=== PATIENT | male | born 1960 | race Caucasian/White ===

== ENCOUNTER 2018-05-11 09:48 | Outpatient (REF) | payer BC, SELFPAY ==
--- NOTE | 2018-05-11 09:00 | SKI_PTH ---
PATIENT: Marty Bond III LOC: [facility] U#:[id number] AGE/SX: 57/M ROOM: RE05/11/[address]: Hiren Armenta : 1960 BED: DIS: 05/11/2018 SPEC #: [id number] RECD: 05/13/18 12:29 STATUS: SHAWN REKesha #: [id number] MARY: 05/11/18 09:[address]: Hiren Armenta DEPT: Surgical Specimen RECD BY: July Black Tissues: 1 - SKIN BIOPSY(SHAVE/PUNCH) Procedures: SKIN LEVEL 4 Comments: [id number]
== END 2018-05-11 10:08 ==
LOC: NCHCN 09:48
PROVIDERS: PCP Internal Medicine; Visit Provider Internal Medicine
DX: D23.62 Other benign neoplasm of skin of left upper limb, including shoulder (principal)
CPT/HCPCS: 88305

== ENCOUNTER 2019-04-19 21:54 | Outpatient (REF) | payer BC, SELFPAY ==
[2019-04-19 21:11] LABS: Anion Gap 10.3 mmol/L (3-11); BUN 18 mg/dL (7-18); CO2 28.7 mmol/L (21.0-32.0); CREATININE 0.95 mg/dL (0.70-1.30); Calcium 9.5 mg/dL (8.5-10.1); Calculated LDL 113 mg/dL; Chloride 101 mmol/L (98-107); Cholesterol 208 mg/dL (<200); Glucose 199 mg/dL (74-106); HDL Cholesterol 42 mg/dL (40-60); Potassium 3.8 mmol/L (3.5-5.1); Sodium 140 mmol/L (136-145); Triglyceride 268 mg/dL (<150)
== END 2019-04-19 22:14 ==
LOC: NCHCN 21:54
PROVIDERS: PCP Internal Medicine; Visit Provider Internal Medicine
DX: E11.9 Type 2 diabetes mellitus without complications (principal); I10 Essential (primary) hypertension; M54.5 Low back pain
CPT/HCPCS: 80048; 80061

== ENCOUNTER 2019-09-20 09:32 | Outpatient (CLI) | payer BC, SELFPAY ==
[2019-09-21 14:51] LABS: COVID-19 RT-PCR Result Not Detected ((See Note))
== END 2019-09-20 09:52 ==
PROVIDERS: PCP Internal Medicine; Visit Provider Internal Medicine
DX: Z11.59 Encounter for screening for other viral diseases (principal)
CPT/HCPCS: U0003

== ENCOUNTER 2020-04-12 00:12 | Outpatient (CLI) | payer BC, SELFPAY ==
--- NOTE | 2020-04-12 | DI.MRI_ITS ---
EXAM: MR BRAIN WO CLINICAL HISTORY: FRONTAL HEADACHE,R51. TECHNIQUE: Multiplanar multisequence MRI was performed. FINDINGS: MR examination of brain was performed according to the usual protocol. Examination is compared with prior study of April 2016 from [facility]. Note is again made right frontal encephalopathy status post reported tumor resection. Mildly abnorma l signal noted in this area FLAIR imaging and T2 weighted imaging, unchanged from prior study. No gr oss evidence of recurrent tumor at this time. There are tiny very peripheral areas cortical diffusion restriction which may correspond to small are as of decreased signal on ADC mapping in the right frontal region, these may represent tiny cortical infarcts. Otherwise diffusion-weighted imaging is within normal limits. No other significant signal abnormality identified in the brain. The orbital and temporal bone structures appear intact. There is normal flow void in the shzkia-po-Wgfuiq vasculature. IMPRESSION: Stable appearance of right frontal poor in cephaly status post tumor resection. Findings suggesting tiny cortical foci of focal infarction in the right frontal lobe adjacent to the prior resection. DATA REPOSITORY:
== END 2020-04-12 00:32 ==
PROVIDERS: PCP Internal Medicine; Visit Provider Internal Medicine
DX: R51.9 Headache, unspecified (principal); Z48.3 Aftercare following surgery for neoplasm
CPT/HCPCS: 70551

== ENCOUNTER 2020-10-27 12:07 | Outpatient (REF) | payer BC, SELFPAY ==
[2020-10-27 21:08] LABS: BUN 18 mg/dL (7-18); CREATININE 0.9 mg/dL (0.70-1.30); Calcium 8.8 mg/dL (8.5-10.1); Chloride 105 mmol/L (98-107); Glucose 194 mg/dL (74-106); Potassium 4.3 mmol/L (3.5-5.1); Sodium 140 mmol/L (136-145)
== END 2020-10-27 12:08 | disposition home or self-care (01) ==
LOC: NCHCN 12:07
PROVIDERS: PCP Internal Medicine; Visit Provider Internal Medicine
DX: I10 Essential (primary) hypertension (principal)
CPT/HCPCS: 80048

== ENCOUNTER 2021-02-16 01:38 | Outpatient (CLI) | payer BC, SELFPAY ==
[2021-02-16 13:05] LABS: Source Nasal/Nares
[2021-02-16 15:32] LABS: COVID-19 PCR Negative (Negative)
== END 2021-02-16 01:39 | disposition home or self-care (01) ==
LOC: LBO 01:38
PROVIDERS: PCP Internal Medicine; Visit Provider Surgery
DX: Z11.52 Encounter for screening for COVID-19 (principal); Z20.822 Contact with and (suspected) exposure to COVID-19; Z01.818 Encounter for other preprocedural examination
CPT/HCPCS: 87635

== ENCOUNTER 2021-10-29 11:15 | Outpatient (REF) | payer BC, SELFPAY ==
[2021-10-29 14:14] LABS: CREATININE 1.2 mg/dL (0.70-1.30)
== END 2021-10-29 11:16 | disposition home or self-care (01) ==
LOC: NCHCN 11:15
PROVIDERS: PCP Internal Medicine; Visit Provider Internal Medicine
DX: U07.1 COVID-19 (principal); Z01.812 Encounter for preprocedural laboratory examination
CPT/HCPCS: 82565

== ENCOUNTER 2021-11-16 03:18 | Outpatient (CLI) | payer BC, SELFPAY ==
[2021-11-16 09:24] LABS: Abs Immature Grans 0.01 10^3/uL (0.0-0.06); Absolute Basophil Count 0.03 10^3/uL (0.0-0.2); Absolute Eosinophil Count 0.31 10^3/uL (0.0-0.7); Absolute Lymphocyte Count 1.59 10^3/uL (1.2-3.4); Absolute Monocyte Count 0.48 10^3/uL (0.1-0.8); Absolute Neutrophil Count 3.13 10^3/uL (1.2-6.7); Basophils % 0.5; Eosinophils % 5.6; HCT 43.7 % (40.0-50.0); HGB 14.6 g/dL (13.5-17.5); Immature Grans % 0.2; Lymphocytes % 28.6; MCH 28.1 pg (27.0-33.0); MCHC 33.4 % (32.0-36.0); MCV 84 fL (80-95); MPV 9.9 fL (8.0-11.0); Monocytes % 8.6; Neutrophils % 56.5; Platelet Count 239 10^3/uL (130-400); RBC 5.19 10^6/uL (4.36-5.78); RDW 13.2 % (11.8-14.1); RDW-SD 40.8 fL; WBC 5.55 10^3/uL (4.4-10.8)
[2021-11-16 09:27] LABS: ESR 5 mm/hr (0-20)
[2021-11-16 10:25] LABS: FREE T4 0.98 ng/dL (0.76-1.46); TSH 2.14 uIU/mL (0.36-3.74)
[2021-11-20 13:21] LABS: CREATININE 0.9 mg/dL (0.70-1.30)
== END 2021-11-16 03:19 | disposition home or self-care (01) ==
LOC: LBO 03:19
PROVIDERS: PCP Internal Medicine; Visit Provider Internal Medicine
DX: E23.6 Other disorders of pituitary gland (principal); E11.9 Type 2 diabetes mellitus without complications
CPT/HCPCS: 36415; 82533; 85652; 82565; 83036; 84439; 84443; 85025

== ENCOUNTER 2022-02-18 11:47 | Outpatient (REF) | payer BC, SELFPAY ==
[2022-02-19 09:20] LABS: PSA, Screening 2.2 ng/mL (<=4.5)
== END 2022-02-18 11:48 | disposition home or self-care (01) ==
LOC: NCHCN 11:47
PROVIDERS: PCP Internal Medicine; Visit Provider Internal Medicine
DX: R39.89 Other symptoms and signs involving the genitourinary system (principal); Z12.5 Encounter for screening for malignant neoplasm of prostate
CPT/HCPCS: 84153

== ENCOUNTER 2022-08-29 15:24 | Outpatient (REF) | payer BC, SELFPAY ==
[2022-08-29 14:39] LABS: Anion Gap 8.2 mmol/L (3-11); BUN 18 mg/dL (7-18); CO2 27.8 mmol/L (21.0-32.0); Calcium 8.9 mg/dL (8.5-10.1); Chloride 103 mmol/L (98-107); Estimated GFR 84.57 (mL/min/1.73m2); Glucose 279 mg/dL (74-106); Potassium 4.2 mmol/L (3.5-5.1); Sodium 139 mmol/L (136-145)
[2022-08-29 14:41] LABS: HCT 40.4 % (40.0-50.0); HGB 13.3 g/dL (13.5-17.5); MCHC 32.9 % (32.0-36.0); MCV 85 fL (80-95); MPV 10.5 fL (8.0-11.0); Platelet Count 237 10^3/uL (130-400); RBC 4.75 10^6/uL (4.36-5.78); RDW-SD 39.9 fL; WBC 6.94 10^3/uL (4.4-10.8)
== END 2022-08-29 15:25 | disposition home or self-care (01) ==
LOC: NCHCN 15:24
PROVIDERS: PCP Internal Medicine; Visit Provider Internal Medicine
DX: E11.9 Type 2 diabetes mellitus without complications (principal); I10 Essential (primary) hypertension; F43.25 Adjustment disorder with mixed disturbance of emotions and conduct
CPT/HCPCS: 80048; 85027

== ENCOUNTER → 2023-01-11 10:03 | Outpatient (CLI) | payer BC, SELFPAY ==
--- NOTE | 2023-01-11 | DI.RAD_ITS ---
Exam(s) XR CHEST 2V PA LATERAL EXAM: XR CHEST 2V PA LATERAL CLINICAL HISTORY: SHORTNESS OF BREATH ICD-R06.02 TECHNIQUE: 2D digital imaging was performed of the chest. Two images were obtained. PA and lateral views were obtained. COMPARISON: No exams were available for comparison FINDINGS: MEDIASTINUM: Normal. HEART: Normal. PULMONARY VASCULATURE: The jewels are prominent bilaterally, right greater than left. LUNGS: There is bilateral basilar atelectasis. No focal consolidating infiltrates. PLEURAL SPACE: No pleural effusion or pneumothorax. BONE:Within normal limits for the patient's age. OTHER FINDINGS:Normal. IMPRESSION: Prominence of the pulmonary jewels, right greater than left. Adenopathy or mass. Pulmonary artery hyp ertension should also be considered. CT scan of the chest with contrast is recommended for further e valuation. DATA REPOSITORY: RADIATION DOSE DELIVERED:
--- NOTE | 2023-01-11 11:26 | DI.VRAD_ITS ---
PROCEDURE INFORMATION: Exam: XR Chest Exam date and time: 01/11/2023 11:11 AM Age: 62 years old Clinical indication: Shortness of breath TECHNIQUE: Imaging protocol: Radiologic exam of the chest. Views: 2 views. COMPARISON: No relevant prior studies available. FINDINGS: Lungs: The right hilum is more prominent than expected. Recommend CT if right hilar mass is suspected clinically. Pleural spaces: Unremarkable. No pleural effusion. No pneumothorax. Heart/Mediastinum: Unremarkable. No cardiomegaly. Bones/joints: Unremarkable. IMPRESSION: The right hilum is more prominent than expected. Recommend CT if right hilar mass is suspected clinically. Dictated and Authenticated by: Delisa Boykin MD. Ordering:STEPHENIE SUNSHINE MD
== END ==
PROVIDERS: PCP Internal Medicine; Visit Provider Nurse Practitioner Family
DX: R06.02 Shortness of breath (principal); R91.8 Other nonspecific abnormal finding of lung field
CPT/HCPCS: 71046

== ENCOUNTER 2023-01-11 10:18 | Outpatient (REF) | payer BC, SELFPAY ==
[2023-01-11 17:25] LABS: Abs Immature Grans 0.02 10^3/uL (0.0-0.06); Absolute Basophil Count 0.03 10^3/uL (0.0-0.2); Absolute Eosinophil Count 0.13 10^3/uL (0.0-0.7); Absolute Lymphocyte Count 1.36 10^3/uL (1.2-3.4); Absolute Monocyte Count 0.43 10^3/uL (0.1-0.8); Absolute Neutrophil Count 5.12 10^3/uL (1.2-6.7); Basophils % 0.4; Eosinophils % 1.8; HCT 38.9 % (40.0-50.0); HGB 13.1 g/dL (13.5-17.5); Immature Grans % 0.3; Lymphocytes % 19.2; MCH 28.7 pg (27.0-33.0); MCHC 33.7 % (32.0-36.0); MCV 85 fL (80-95); MPV 11.6 fL (8.0-11.0); Monocytes % 6.1; Neutrophils % 72.2; Platelet Count 243 10^3/uL (130-400); RBC 4.57 10^6/uL (4.36-5.78); RDW 13.4 % (11.8-14.1); WBC 7.09 10^3/uL (4.4-10.8)
[2023-01-11 17:53] LABS: ALT 58 U/L (16-63); AST 16 U/L (15-37); Albumin 3.7 g/dL (3.4-5.0); Alkaline Phosphatase 82 U/L (46-116); Anion Gap 11.7 mmol/L (3-11); BUN 14 mg/dL (7-18); Bilirubin, Total 1.5 mg/dL (0.2-1.0); CO2 25.3 mmol/L (21.0-32.0); Calcium 8.8 mg/dL (8.5-10.1); Chloride 103 mmol/L (98-107); Estimated GFR 84.57 (mL/min/1.73m2); Glucose 240 mg/dL (74-106); NT-proBNP 1066 pg/mL (<300); Sodium 140 mmol/L (136-145); TSH (W/Ref FT4) 1.75 uIU/mL (0.36-3.74)
[2023-01-13 18:08] LABS: Creatine Kinase 69 U/L (39-308)
== END 2023-01-11 10:19 | disposition home or self-care (01) ==
LOC: LBN 10:18
PROVIDERS: PCP Internal Medicine; Visit Provider Nurse Practitioner Family
DX: R53.83 Other fatigue (principal); R06.09 Other forms of dyspnea; R06.02 Shortness of breath
CPT/HCPCS: 80053; 82550; 83880; 84443; 85025

== ENCOUNTER → 2023-01-21 01:13 | Outpatient (CLI) | payer BC, SELFPAY ==
--- NOTE | 2023-01-21 | DI.CT_ITS ---
Exam(s) CT CHEST PE CTA EXAM: CT CHEST PE CTA CLINICAL HISTORY: SOB, R06.02, ABNL EKG, R94.31,HILAR ADENOPATHY,R59.0,?PE. TECHNIQUE: Imaging Protocol: CT angiography of the chest was performed using pulmonary embolus sherly col. Multi planar reconstructions were performed. CONTRAST MATERIAL: Intravenous: Omnipaque 350 Contrast volume: 100 cc COMPARISON: No exams were available for comparison FINDINGS: CHEST: PULMONARY ARTERIES: There are no intraluminal filling defects to suggest acute pulmonary emboli. LUNGS: There is mild subpleural infiltrate over the superior segments of both lower lobes and extendi ng into the posterior basal segments bilaterally, not associated with pleural effusions. There is sp aring of the upper lobes. There is a benign-appearing 2 millimeters subpleural nodule in the lateral aspect of the right middle lobe. Lingular segment of the left lung appears unremarkable. No focal findings in trachea and mainstem bronchi.. There are no pleural effusions. MEDIASTINUM: There is no hilar nor mediastinal adenopathy. Visualized thyroid unremarkable. CARDIAC: Heart size upper normal. There is a thin pericardial effusion noted anteriorly with maximum thickness 0.5 cm.Caliber of the thoracic aorta is within normal limits. Cannot assess for aortic dis section as all the contrast is in the pulmonary arterial tree. There is no significant shift of the interventricular septum. PARTIALLY VISUALIZED UPPERMOST ABDOMEN: No obvious findings OSSEOUS: No significant osseous lesions.. IMPRESSION: 1. No evidence of acute pulmonary emboli nor pulmonary infarction 2. However, there is mild infiltrate noted posteriorly in the superior segments of both lower lobes a s well as in the posterior basal segments of both lower lobes. No associated pleural effusions. No hilar nor mediastinal adenopathy. 3. Small pericardial effusion noted. RADIATION DOSE DELIVERED: 590.99mGy.cm Total DLP DATA REPOSITORY: All CT scans at this facility are submitted to the National Radiology Data Registry (NRDR) Dose Index Registry (DIR) with the [employer] (ACR). RADIATION OPTIMIZATION: All CT scans at this facility use at least one of these dose optimization te chniques: automated exposure control; mA and/or kV adjustment per patient size (includes targeted exa ms where dose is matched to clinical indication); or iterative reconstruction.
[2023-01-21] MEDS: Normal Saline - Diluent 50 ML VIAL IJ (11:04)
[2023-01-21] MEDS: Normal Saline Flush 10 ML SYR IVP (11:05)
[2023-01-21] MEDS: Omnipaque 350 MG/ML 500 ML BTL-Imaging package 100 ML IJ (11:06)
== END ==
PROVIDERS: PCP Internal Medicine; Visit Provider Internal Medicine
DX: R91.8 Other nonspecific abnormal finding of lung field (principal)
CPT/HCPCS: 71275

== ENCOUNTER 2023-03-10 18:35 | Outpatient (REF) | payer BC, SELFPAY ==
[2023-03-10 21:23] LABS: Abs Immature Grans 0.02 10^3/uL (0.0-0.06); Absolute Basophil Count 0.03 10^3/uL (0.0-0.2); Absolute Eosinophil Count 0.14 10^3/uL (0.0-0.7); Absolute Lymphocyte Count 1.19 10^3/uL (1.2-3.4); Absolute Monocyte Count 0.47 10^3/uL (0.1-0.8); Absolute Neutrophil Count 5.71 10^3/uL (1.2-6.7); Basophils % 0.4; Eosinophils % 1.9; HCT 42.2 % (40.0-50.0); HGB 13.6 g/dL (13.5-17.5); Immature Grans % 0.3; Lymphocytes % 15.7; MCH 27.4 pg (27.0-33.0); MCHC 32.2 % (32.0-36.0); MCV 85 fL (80-95); MPV 11.2 fL (8.0-11.0); Monocytes % 6.2; Neutrophils % 75.5; Platelet Count 269 10^3/uL (130-400); RBC 4.97 10^6/uL (4.36-5.78); RDW 13.8 % (11.8-14.1); RDW-SD 42.9 fL; WBC 7.56 10^3/uL (4.4-10.8)
[2023-03-10 21:42] LABS: ALT 58 U/L (16-63); AST 14 U/L (15-37); Albumin 3.7 g/dL (3.4-5.0); Alkaline Phosphatase 84 U/L (46-116); Anion Gap 11.2 mmol/L (3-11); BUN 17 mg/dL (7-18); Bilirubin, Total 1.4 mg/dL (0.2-1.0); CO2 23.8 mmol/L (21.0-32.0); CREATININE 0.8 mg/dL (0.70-1.30); Calcium 9.2 mg/dL (8.5-10.1); Chloride 104 mmol/L (98-107); Creatine Kinase 46 U/L (39-308); Estimated GFR 99.44 (mL/min/1.73m2); Glucose 172 mg/dL (74-106); NT-proBNP 1917 pg/mL (<300); Potassium 4.4 mmol/L (3.5-5.1); Sodium 139 mmol/L (136-145); Total Protein 6.2 g/dL (6.4-8.2)
[2023-03-10 22:08] LABS: D-Dimer 1088 ng/mlFEU (<500)
== END 2023-03-10 18:36 | disposition home or self-care (01) ==
LOC: NCHCN 18:35
PROVIDERS: PCP Internal Medicine; Visit Provider Internal Medicine
DX: R06.01 Orthopnea (principal); E11.9 Type 2 diabetes mellitus without complications; R06.00 Dyspnea, unspecified; I51.7 Cardiomegaly; I10 Essential (primary) hypertension
CPT/HCPCS: 80053; 82550; 83880; 85025; 85379

== ENCOUNTER → 2023-03-11 22:05 | Outpatient (CLI) | payer BC, SELFPAY ==
--- NOTE | 2023-03-11 | DI.CT_ITS ---
Exam(s) CT CHEST PE CTA EXAM: CT CHEST PE CTA CLINICAL HISTORY: DYSPNEA, R06.00, ELEVATED D DIMER. TECHNIQUE: Imaging Protocol: Axial CT angiography was performed with multi-slice acquisition and mu lti-planar reconstructions as well as axial, coronal and sagittal MIP reconstructions. CONTRAST MATERIAL: Intravenous: Omnipaque 350 Contrast volume:100 ml COMPARISON: CT CT CHEST PE CTA from 01/21/2023 FINDINGS: Pulmonary Arteries: Small emboli seen in right lateral basilar pulmonary artery branches. No additio nal emboli. Tracheobronchial tree: Patent where visualized. Mediastinum and Laura: No dominant adenopathy or fluid collection. Pulmonary parenchyma: On atelectasis versus infiltrate medial right lower lobe. Pleura: Small to moderate-sized bilateral pleural effusions, right greater than left. Small pericard ial effusion, similar to prior. No pneumothorax. Heart: The heart is dilated, particularly left ventricle and left atrium.. No coronary artery calci fications are seen. Aorta: Thoracic aorta non-dilated. No aneurysm. No dissection. Upper abdomen: Unremarkable. Bones: Unremarkable for age. Tubes, Catheters, and Lines: None IMPRESSION: Small pulmonary emboli in right lateral basilar branch vessels. Right lower lobe infiltrate versus atelectasis. Cardiomegaly. Small pericardial effusion. RADIATION DOSE DELIVERED: Total DLP DATA REPOSITORY: All CT scans at this facility are submitted to the National Radiology Data Registry (NRDR) Dose Index Registry (DIR) with the [employer] (ACR). RADIATION OPTIMIZATION: All CT scans at this facility use at least one of these dose optimization te chniques: automated exposure control; mA and/or kV adjustment per patient size (includes targeted exa ms where dose is matched to clinical indication); or iterative reconstruction.
[2023-03-11] MEDS: Normal Saline - Diluent 50 ML VIAL IJ (13:05)
[2023-03-11] MEDS: Omnipaque 350 MG/ML 100 ML BTL IJ (13:06)
[2023-03-11] MEDS: Normal Saline Flush 10 ML SYR IVP (13:08)
== END ==
PROVIDERS: PCP Internal Medicine; Visit Provider Internal Medicine
DX: R06.00 Dyspnea, unspecified (principal)
CPT/HCPCS: 71275; J3490

== ENCOUNTER 2023-04-17 14:53 | Outpatient (RCR) | payer BC, SELFPAY | END 2023-04-17 23:59 | disposition home or self-care (01) | LOC: CR 14:53 | PROVIDERS: PCP Internal Medicine; Visit Provider Internal Medicine Cardiovascular Disease | DX: I50.23 Acute on chronic systolic (congestive) heart failure (principal) ==

== ENCOUNTER 2023-05-16 08:11 | Outpatient (RCR) | payer BC, SELFPAY ==
--- OUTSIDE RECORDS SUMMARY | 2023-04-21 10:32 | XMS_ITS | Continuity of Care Document ---
Author Name Unknown Organization [facility] Address [address] [place] [address] Care Team Providers Care Line Service Technician Name Role Phone Hiren Armenta Primary Care Physician Encounter [facility] [id number] Date(s): 05/16/22 - 05/16/[address] [address]- [place] Discharge Disposition: Home or Self Care Attending Physician: Hiren Armenta Admitting Physician: Hiren Armenta Referring Physician: Hiren Armenta Results Radiology Reports * Exam Date Time Procedure Performing Provider Status 05/16/22 2:16 PM [facility] Xenia Whiteside ( Verified) Notes: ([facility]) Reason For Exam: lt scrotal mass [facility] EXAM DESCRIPTION: [facility] 05/16/2022 INDICATION: LT SCROTAL MASS TECHNIQUE: Limited grayscale ultrasound examination of the left inguinal region was performed in the vicinity of clinical concern. Static and cine clip images were obtained. COMPARISON: None FINDINGS: Ovoid area of intermediate echogenicity edematous appearing tissue in the left inguinal region suggesting inflammation with ill-defined hypoechoic collection in the superficial soft tissues in this region measuring approximately 10 x 3 mm. The patient relates a history of recent expression of fluid from this region, and this likely reflects small residual collection such as abscess or hematoma given this clinical history. Otherwise no mass or abnormal fluid collection identified in this region. IMPRESSION: Small hypoechoic fluid collection in the superficial soft tissues of the left inguinal region in the vicinity of clinical concern measuring approximately 10 x 3 mm likely reflecting small abscess or hematoma with surrounding subcutaneous soft tissue edema. JOB #: [id number] Final Signed by: Jairo Toledo MD Signed (Electronic Signature): 05/16/2022 2:39 pm US Pelvis [facility] * Jairo Toledo MD: VERIFY, VERIFY Event Display: Report EXAM DESCRIPTION: [facility] 05/16/2022 INDICATION: LT SCROTAL MASS TECHNIQUE: Limited grayscale ultrasound examination of the left inguinal region was performed in the vicinity of clinical concern. Static and cine clip images were obtained. COMPARISON: None FINDINGS: Ovoid area of intermediate echogenicity edematous appearing tissue in the left inguinal region suggesting inflammation with ill-defined hypoechoic collection in the superficial soft tissues in this region measuring approximately 10 x 3 mm. The patient relates a history of recent expression of fluid from this region, and this likely reflects small residual collection such as abscess or hematoma given this clinical history. Otherwise no mass or abnormal fluid collection identified in this region. IMPRESSION: Small hypoechoic fluid collection in the superficial soft tissues of the left inguinal region in the vicinity of clinical concern measuring approximately 10 x 3 mm likely reflecting small abscess or hematoma with surrounding subcutaneous soft tissue edema. JOB #: [id number] Final Signed by: Jairo Toledo MD Signed (Electronic Signature): 05/16/2022 2:39 pm Patient Care team information Personnel Name: Hiren Armenta Address: Address: [address] [place] [id number]
--- NOTE | 2023-04-21 11:30 | RT.EKG_ITS ---
APPROVED REPORT Exam: Resting ECG Reason for Exam: ? rhythm change Patient Location: O HR:105 bpm ECG Measurements Heart Rate 105 AXIS PA [id number] P [id number] QRSd 128 QRS 10 QT 397 T 117 QTc 525 Conclusion Atrial flutter...A-rate 258 LVH with secondary repolarization abnormality...multi-LVH criteria, abnrm ST-T Borderline ST elevation, inferior leads...ST >0.06mV, II III aVF
--- OUTSIDE RECORDS SUMMARY | 2023-05-16 08:14 | XMS_ITS | Continuity of Care Document ---
Author Name Unknown Organization [facility] Address [address] [place] [address] Care Team Providers Care Summer Clerk Name Role Phone Suzanne Aquino Primary Care Physician Encounter [facility] Date(s): 05/07/23 - 05/07/23 [facility] [address] [place] [address] Discharge Disposition: Home Allergies, Adverse Reactions, Alerts Substance Reaction Severity Status Atorvastatin Calcium Moderate Active Jardiance Unknown Active Rosuvastatin Calcium Moderate Active Ozempic Unknown Active Assessment and Plan Future Appointments Medications Albuterol (Eqv-ProAir HFA) 90 mcg/inh inhalation aerosol 0 Refill(s) Start Date: 05/05/23 Status: Ordered amLODIPine 5 mg oral tablet 5 mg = 1 tab, Oral, Daily, # 30 tab, 0 Refill(s) Start Date: 05/05/23 Status: Ordered bisoprolol-hydrochlorothiazide 2.5 mg-6.25 mg oral tablet 0 Refill(s) Start Date: 05/05/23 Status: Ordered Eliquis 5 mg oral tablet 5 mg = 1 tab, Oral, BID, take 2 tablets by mouth twice a day, # 60 tab, 0 Refill(s) Start Date: 05/05/23 Status: Ordered metFORMIN 500 mg oral tablet take three tablets daily, 0 Refill(s) Start Date: 05/05/23 Status: Ordered torsemide 20 mg oral tablet 20 mg = 1 tab, Oral, Daily, # 30 tab, 0 Refill(s) Start Date: 05/05/23 Status: Ordered zolpidem 5 mg oral tablet See Instructions, take 1-2 PO night of sleep study if needed, # 2 tab, 0 Refill(s), Pharmacy: [facility]/pharmacy #[id number], 193.04, cm, 05/07/23 9:58:00 EST, Height, 106.59, kg, 05/07/23 10:07:00 EST, Weight Dosing Start Date: 05/07/23 Status: Ordered Problem List Condition Confirmation Course Effective Dates Status H ealth Status Informant Acute systolic congestive heart failure Confirmed Active Adjustment disorder with mixed emotional features Confirmed Active Allergic rhinitis Confirmed Active Anxiety Confirmed Active Bereavement Confirmed Active Bilateral tinnitus Confirmed Active Cardiomegaly Confirmed Active Depression Confirmed Active Dyspnea Confirmed Active Shortness of breath Confirmed Active Abnormal EKG Confirmed Active Empty sella Confirmed Active Environmental allergies Confirmed Active Fatigue Confirmed Active History of tobacco use Confirmed Active History of brain tumor Confirmed Active Hilar adenopathy Confirmed Active High cholesterol Confirmed Active Hypertension Confirmed Active Groin pain Confirmed Active Lipoma of back Confirmed Active Lumbar back pain Confirmed Active Nocturia Confirmed Active Orthopnea Confirmed Active Pulmonary embolism Confirmed Active Seizure disorder Confirmed Active Abnormal chest x-ray with multiple nodules Confirmed Active Tendinitis of left wrist Confirmed Active Type II diabetes mellitus Confirmed Active Social History Social History Type Response Tobacco Former tobacco user Tobacco Use:. 1 Sex 1quit in 2006 Patient Care team information Care Team Personnel Name: Suzanne Aquino MD Position: No Access Member Role: Primary Care Physician Address: Address: [address] [place] [address] Care Team Related Persons Name: KURT MILLS
== END 2023-05-18 23:59 | disposition home or self-care (01) ==
LOC: CR 08:11
PROVIDERS: PCP Internal Medicine; Visit Provider Internal Medicine Cardiovascular Disease
DX: I50.23 Acute on chronic systolic (congestive) heart failure (principal); Z51.89 Encounter for other specified aftercare
CPT/HCPCS: S9472

== ENCOUNTER 2023-06-16 08:10 | Outpatient (RCR) | payer BC, SELFPAY | END 2023-06-18 23:59 | disposition home or self-care (01) | LOC: CR 08:10 | PROVIDERS: PCP Internal Medicine; Visit Provider Internal Medicine Interventional Cardiology | DX: I50.23 Acute on chronic systolic (congestive) heart failure (principal); Z51.89 Encounter for other specified aftercare | CPT/HCPCS: S9472 ==

== ENCOUNTER 2023-06-27 14:25 | Outpatient (RCR) | payer BC, SELFPAY | END 2023-07-17 23:59 | disposition home or self-care (01) | LOC: CR 14:25 | PROVIDERS: PCP Internal Medicine; Visit Provider Internal Medicine Interventional Cardiology | DX: I50.22 Chronic systolic (congestive) heart failure (principal); Z51.89 Encounter for other specified aftercare | CPT/HCPCS: S9472 ==

== ENCOUNTER 2023-08-15 08:00 | Outpatient (RCR) | payer BC, SELFPAY | END 2023-08-17 23:59 | disposition home or self-care (01) | LOC: CR 08:00 | PROVIDERS: PCP Family Medicine; Visit Provider Internal Medicine Cardiovascular Disease | DX: I50.23 Acute on chronic systolic (congestive) heart failure (principal); Z51.89 Encounter for other specified aftercare | CPT/HCPCS: S9472 ==

== ENCOUNTER 2023-08-18 08:00 | Outpatient (RCR) | payer BC, SELFPAY | END 2023-09-16 23:59 | disposition home or self-care (01) | LOC: CR 08:00 | PROVIDERS: PCP Family Medicine; Visit Provider Internal Medicine Cardiovascular Disease | DX: I50.23 Acute on chronic systolic (congestive) heart failure (principal); Z51.89 Encounter for other specified aftercare | CPT/HCPCS: S9472 ==

== ENCOUNTER 2023-12-19 11:59 | Day surgery (SDC) | payer BC, SELFPAY ==
--- NOTE | 2023-12-18 16:42 | W.PM.DSUDISC ---
Date of service: 12/19/23 Time of Service: 13:51 Discharge Plan Disposition Patient Disposition: Home Condition: Good Discharge Details Reason For Visit: cyst removal Attending Provider: Crystal Chadwick Primary Care Provider: Suzanne Aquino Home Meds and New Rx's Prescriptions: No Action multivitamin [Multiple Vitamins] Tablet 1 tab PO DAILY Patient Comments: 1000 mg last katty rosuvastatin 5 mg tablet 5 mg PO .weekly bisoprolol fumarate 5 mg tablet 5 mg PO DAILY Eliquis 5 mg tablet 5 mg PO BID Entresto 49-51 mg tablet 1 tab PO BID Jardiance 25 mg tablet 25 mg PO DAILY metformin 500 mg tablet 500 mg PO TID torsemide 20 mg tablet 10 mg PO DAILY Discharge Instructions Additional Instructions: Wound Care Instruction Pain Control Use ice!? Ice keeps the swelling down and swelling is what causes pain.? Never apply ice directly to the skin.? Wrap it in a towel or cloth.? Apply ice 20 minutes on and 20 minutes off for pain control.? Use as needed. Take Tylenol 500 mg by mouth with food every 4 hours as needed for pain. Do not take Tylenol if you have a history of heavy drinking, hepatitis C or liver problems.? Always wash your hands before touching your incision. ? Keep the incision clean and dry. ? Do not to pick at the scabs. Scabs help protect the wound. -Stitches will need to come out in 10 days time. You can remove these herself or follow-up with us at the clinic. -I recommend wearing a menstrual pad for a few days. And for comfort. There may be some pinkish drainage for 2 to 3 days. -Resume Eliquis on Friday -You will be black and blue. If you notice heavy bleeding or swelling that seems to be increasing, please call our clinic or go to the ER. -No lifting over 5 pounds for 72 hours. ? You can take a shower in 24 hours and wash the incision with soap and water. Pat dry/don?t scrub. It?s OK to wash around the incision. But don?t spray water directly on it. Wash incision with soap and water 2-3 times a day. ? Pat stitches dry if they get wet. Don't rub. ? Check the incision site daily for pain, redness, drainage, swelling, or separation of the incision edges. ? Make sure any clothing that touches the incision is loose-fitting. As your incision heals, the skin may appear pink or red. It may also feel slightly bumpy or raised. This is called a healing ridge. Over time, the color should fade and the raised skin will become less noticeable. When to seek medical care Call your healthcare provider right away if you have any of these: ? More pain, redness, swelling, bleeding, or foul-smelling discharge around the incision area ? Fever of 101?F (38.3?C) or higher, or as directed by your child's healthcare provider ? Shaking chills ? Vomiting or nausea that doesn?t go away ? Numbness, coldness, or tingling around the incision area, or changes in skin color ? Opening of the sutures or wound -Stitches or ezequiel that come apart or fall out or surgical tape falls off before 7 days, or as directed by your healthcare provider ?[facility]: [phone] Activity:: The above Remove Dressings/Wound Care:: 24 hours Shower/Bathe:: 24 hours Diet:: As Tolerated Discharge Orders Discharge Orders: Discharge Order (Routine); Ordered 12/19/23 Ordered By: Crystal Chadwick DS: Diagnosis Discharge Diagnosis (1) Hypertensive disorder: Status: Chronic (2) Cardiomegaly: Status: Acute (3) High cholesterol: Status: Chronic (4) Diabetes: Status: Chronic (5) Empty sella: Status: Acute (6) Groin abscess: Status: Acute (7) Infected sebaceous cyst of skin: Status: Acute Asessment and Plan: The patient is doing well post-op from their excision of sebaceous cyst surgery.? They are having no nausea or vomiting. They are tolerating liquids and a snack. The pt is not having any chest pain or SOB.? Their pain is adequately controlled. They have been able to urinate.? ?HEENT:? no eye pain/drainage/redness/swelling. Mild sore throat ?Cardio- NSR, no chest pain, BP stable- see VS record ?Pulm: no sob or productive cough. No hemoptysis ?Incision- dressing is c/d/i w/ no excessive bleeding or drainage ?I discussed with the patient the findings at the time of surgery and the patient?s progress. ?We reviewed expectations at home; what the patient could expect for recovery time, and in the post-operative period.? We discussed the importance of walking to avoid blood clots and pneumonia.? We discussed and reviewed the patient's post-operative wound care and dressing needs.?? We reviewed their step-meza pain management plan, Rx called to the pharmacy of their choice.? We reviewed activity and limitations-see discharge instructions. We reviewed warning signs, and when to seek medical attention- see d/c instructions.?? Patient was given a postoperative follow-up appointment. Patient verbalized understanding of their postoperative instructions, how do to take care of themselves and their incision, and the pain management plan. Please see discharge instructions.? (8) CHF (congestive heart failure): (9) Chronic systolic heart failure: (10) Atrial flutter: (11) History of tobacco use:
[2023-12-19 12:34] VITALS: BP 135/74; PULSE 63; RESP 16; TEMP 36.3; O2SAT 95
[2023-12-19] MEDS: Acetaminophen 500 MG TAB 1000 MG PO (12:41)
[2023-12-19] MEDS: Cephalexin 500 MG CAP 1000 MG PO (12:42)
[2023-12-19] MEDS: Lidocaine/Prilocaine Cream 5 GM TUBE TP (12:43)
--- NOTE | 2023-12-19 12:52 | NUR.NOTE ---
Nursing Note: Pt refused PO gabapentin preop.
--- NOTE | 2023-12-19 13:30 | SKI_PTH ---
PATIENT: Marty Bond III LOC: [facility] U#:[id number] AGE/SX: 63/M ROOM: RE12/19/[address]: Crystal Chadwick : 1960 BED: DIS: 12/19/2023 SPEC #: [id number] RECD: 12/19/23 15:16 STATUS: SHAWN REKesha #: [id number] MARY: 12/19/23 13:[address]: Crystal Chadwick DEPT: Surgical Specimen RECD BY: Rani Dominique ENTERED: 12/19/23 15:17 SP TYPE: MAVIS [place] DR: Suzanne Aquino Tissues: 1 - SKIN CYST/TAG/DEBRIDEMENT Procedures: GROSS AND MICRO LEVEL 3 Comments: [id number]
[2023-12-19] MEDS: Lidocaine 1% Multi-Dose W/EPI 1/100,000 50 ML VIAL (13:34)
[2023-12-19 13:51] VITALS: BP 132/75; PULSE 57; RESP 14; TEMP 36.1; O2SAT 98
--- NOTE | 2023-12-19 13:56 | W.PM.OP ---
Date of service: 12/19/23 Time of Service: 13:56 Operative Note Operative Note DATE OF PROCEDURE: 12/19/23 PRE-OP DIAGNOSIS: Infected sebaceous cyst POST-OP DIAGNOSIS: same PROCEDURE: Excision of sebaceous cyst left groin SURGEON: Crystal Chadwick ANESTHESIA TYPE: Local By Surgeon Refer to Anesthesia Record ESTIMATED BLOOD LOSS: 2 PATHOLOGY: other COMPLICATIONS: None Patient was transported to: same day Patient's condition: stable
--- NOTE | 2023-12-19 23:18 | W.PM.OP ---
Date of service: 12/19/23 Time of Service: 13:56 Operative Note Operative Note DATE OF PROCEDURE: 12/19/23 PROCEDURE: Excision of sebaceous cyst left groin Refer to Anesthesia Record Implants: Excision of sebaceous cyst left groin Procedure Description: Operative Note Operative Note DATE OF PROCEDURE: 12/19/23 PRE-OP DIAGNOSIS: Infected sebaceous cyst POST-OP DIAGNOSIS: same PROCEDURE: Excision of sebaceous cyst left groin SURGEON: Crystal Chadwick ANESTHESIA TYPE: Local By Surgeon Refer to Anesthesia Record ESTIMATED BLOOD LOSS: 2 PATHOLOGY: other COMPLICATIONS: None Patient was transported to: same day Patient's condition: stable Patient has a recurrent sebaceous cyst in his left groin is here today for excision. He has been on antibiotic previously. He did bring his blood thinners. Informed consent is obtained explaining risks procedure including but not: Bleeding, infection, pneumonia, blood clots, exacerbation of his CHF, recurrence, need for removal more tissue, reaction to medications, need to heal by secondary intent. Patient understands that he will have a surgical incision will need to take care of it and is able to care for his incision. Patient is marked in preop. He was brought back to the operative suite and placed into low lithotomy stirrups. Timeout is performed. He does not require additional antibiotics. Patient is prepped and draped in the usual sterile fashion using a Betadine scrub solution. Patient had Emla cream applied. 10 cc of 1% buffered lidocaine with epi is used for local anesthesia. The area of the cyst is excised. Wound is irrigated. There is no extensive bleeding. It was closed with a deep stitch of 4-0 Vicryl and 3 stitches of 3-0 nylon. Sterile dressing was applied. Patient tolerated procedure well complication and transferred to recovery room in stable condition
== END 2023-12-19 14:27 | disposition home or self-care (01) ==
PROVIDERS: PCP Family Medicine; Visit Provider Surgery
PROC: (CPT 11403; principal; 2023-12-19 12:45)
DX: L72.3 Sebaceous cyst; I11.0 Hypertensive heart disease with heart failure; I50.22 Chronic systolic (congestive) heart failure; E78.00 Pure hypercholesterolemia, unspecified; Z79.01 Long term (current) use of anticoagulants; Z79.84 Long term (current) use of oral hypoglycemic drugs; I48.92 Unspecified atrial flutter
CPT/HCPCS: 11403; 88304; J2004

== ENCOUNTER 2024-09-21 16:28 | Outpatient (REF) | payer BC, SELFPAY ==
[2024-09-21 22:21] LABS: ALT 23 U/L (16-63); AST 12 U/L (15-37); Albumin 4.1 g/dL (3.4-5.0); Alkaline Phosphatase 82 U/L (46-116); Anion Gap 6.7 mmol/L (3-11); BUN 19 mg/dL (7-18); Bilirubin, Total 1.2 mg/dL (0.2-1.0); CO2 29.3 mmol/L (21.0-32.0); COMMENT (LAB VIEW ONLY) 38.58 mg/dL; CREATININE 0.9 mg/dL (0.70-1.30); Calcium 9.1 mg/dL (8.5-10.1); Chloride 106 mmol/L (98-107); Estimated GFR 94.78 (mL/min/1.73m2); Glucose 205 mg/dL (74-106); Microalb ug/mg Crea 18.1 ug/mg Cr; Potassium 4.3 mmol/L (3.5-5.1); Sodium 142 mmol/L (136-145); Total Protein 6.7 g/dL (6.4-8.2)
[2024-09-23 10:16] LABS: Hepatitis C Ab w Rflx HCV PCR Negative (Negative)
[2024-09-23 12:03] LABS: HIV-1/2 Ag & Ab Screen Negative (Negative)
== END 2024-09-21 16:29 | disposition home or self-care (01) ==
LOC: NCHCN 16:28
PROVIDERS: PCP Family Medicine; Visit Provider Family Medicine
DX: I10 Essential (primary) hypertension (principal); Z11.59 Encounter for screening for other viral diseases
CPT/HCPCS: 80053; 86803; 87389; 82043; 82570

== ENCOUNTER 2024-12-13 14:44 | Outpatient (REF) | payer BC, SELFPAY ==
[2024-12-13 16:13] LABS: ESR 4 mm/hr (0-20)
[2024-12-13 16:16] LABS: Abs Immature Grans 0.01 10^3/uL (0.0-0.06); HCT 43.7 % (40.0-50.0); HGB 14.4 g/dL (13.5-17.5); Immature Grans % 0.2 %; MCH 27.9 pg (27.0-33.0); MCHC 33.0 % (32.0-36.0); MCV 85 fL (80-95); MPV 10.7 fL (8.0-11.0); Platelet Count 206 10^3/uL (130-400); RBC 5.16 10^6/uL (4.36-5.78); RDW 13.2 % (11.8-14.1); RDW-SD 40.7 fL; WBC 6.07 10^3/uL (4.4-10.8)
[2024-12-13 16:54] LABS: C-Reactive Protein < 0.50 mg/dL (<or=0.5); Creatine Kinase 41 U/L (39-308)
== END 2024-12-13 14:45 | disposition home or self-care (01) ==
LOC: NCHCN 14:44
PROVIDERS: PCP Family Medicine; Visit Provider Family Medicine
DX: M79.18 Myalgia, other site (principal)
CPT/HCPCS: 82550; 85652; 85025; 86140

== ENCOUNTER 2025-03-14 19:21 | Outpatient (REF) | payer BC, SELFPAY ==
[2025-03-15 17:58] LABS: PSA, Screening 2.2 ng/mL (<=4.5)
== END 2025-03-14 19:22 | disposition home or self-care (01) ==
LOC: NCHCN 19:21
PROVIDERS: PCP Family Medicine; Visit Provider Family Medicine
DX: Z12.5 Encounter for screening for malignant neoplasm of prostate (principal)
CPT/HCPCS: 84153